=== PATIENT | male | born 2000 | race Two or more races ===

== ENCOUNTER 2022-10-18 10:42 | Inpatient (IN) | payer OTHER ==
[~2022-10-18] VITALS: Ht 182.9 cm; Wt 77.2 kg
[2022-10-18] VITALS (9 sets, daily range): BP systolic 111–128; BP diastolic 55–73
[2022-10-18 11:08] LABS: BASO # 0.1 10^3/uL (0.0-0.2); BASO % 0.5 % (0.0-1.0); EOS % 0.2 % (0.0-3.0); HEMATOCRIT 43.8 % (42.0-52.0); HEMOGLOBIN 15.1 g/dl (13.5-17.5); LYMPH # 1.7 10^3/uL (1.5-5.0); LYMPH % 17.5 % (24.0-44.0); MEAN CORPUSCULAR HEMOGLOBIN 29.2 pg (27.0-33.0); MEAN CORPUSCULAR HGB CONC 34.5 g/dl (32.0-36.5); MEAN CORPUSCULAR VOLUME 84.6 fl (80.0-96.0); MONO # 0.8 10^3/uL (0.0-0.8); MONO % 8.3 % (2.0-8.0); NEUTROPHILS # 7.1 10^3/uL (1.5-8.5); NEUTROPHILS % 73.2 % (36.0-66.0); PLATELET COUNT, AUTOMATED 249 10^3/uL (150-450); RED BLOOD COUNT 5.18 10^6/uL (4.30-6.10); WHITE BLOOD COUNT 9.8 10^3/uL (4.0-10.0)
[2022-10-18] MEDS ORDERED: NS 1,000 ML IV SCH (11:15)
[2022-10-18 11:16] LABS: ABG BASE EXCESS -0.1 (-2.0-2.0); ABG HCO3 21.6 MEQ/L (22.0-26.0); ABG O2 SATURATION 98.3 % (95.0-99.0); ABG PARTIAL PRESSURE CO2 28.3 mmHg (35.0-45.0); ABG PARTIAL PRESSURE O2 110.8 mmHg (75.0-100.0); ABG STANDARD HCO3 24.5 MEQ/L (22.0-26.0); ABG TOTAL CO2 22.5 MEQ/L (22.0-29.0); ABG pH (ARTERIAL) 7.501 UNITS (7.350-7.450)
[2022-10-18 11:50] LABS: VENOUS BASE EXCESS -2.2 (-2.0-2.0); VENOUS HCO3 19.5 MEQ/L (23.0-27.0); VENOUS O2 SATURATION 99.1 % (60.0-80.0); VENOUS PARTIAL PRESSURE CO2 26.8 mmHg (38.0-50.0); VENOUS PARTIAL PRESSURE O2 170.1 mmHg (30.0-50.0); VENOUS PH 7.479 UNITS (7.330-7.430); VENOUS STANDARD HCO3 22.7 MEQ/L; VENOUS TOTAL CO2 20.3 MEQ/L (24.0-28.0)
[2022-10-18 11:54] LABS: AMPHETAMINES LEVEL URINE NEGATIVE (NEGATIVE)
[2022-10-18 11:55] LABS: ETHYL ALCOHOL (ETHANOL) 0.003 % (0.000-0.010)
[2022-10-18 11:55] LABS: BARBITURATES URINE NEGATIVE (NEGATIVE); BENZODIAZEPINES URINE NEGATIVE (NEGATIVE); COCAINE METABOLITE URINE NEGATIVE (NEGATIVE); METHADONE URINE NEGATIVE (NEGATIVE); OPIATES URINE NEGATIVE (NEGATIVE); PHENCYCLIDINE URINE NEGATIVE (NEGATIVE)
[2022-10-18] MEDS ORDERED: SODIUM BICARBONATE 150 MEQ in D5W 1,000 ML IV SCH ×2 (11:55→15:00)
[2022-10-18 11:57] LABS: ACETAMINOPHEN LEVEL < 2.0 UG/ML (10.0-20.0); ALBUMIN 4.1 G/DL (3.2-5.2); ALKALINE PHOSPHATASE 60 U/L (46-116); ALT/SGPT 14 U/L (7.0-40); AST/SGOT 14 U/L (<34); BILIRUBIN,DIRECT 0.1 MG/DL (<0.4); BILIRUBIN,TOTAL 0.3 MG/DL (0.3-1.2); BLOOD UREA NITROGEN 15 MG/DL (9-23); CALCIUM LEVEL 8.5 MG/DL (8.5-10.1); CARBON DIOXIDE LEVEL 22 MMOL/L (20-31); CHLORIDE LEVEL 110 MMOL/L (98-107); CREATININE FOR GFR 1.15 MG/DL (0.70-1.30); GLOMERULAR FILTRATION RATE > 60.0 (>60); GLUCOSE, FASTING 87 MG/DL (60-100); POTASSIUM SERUM 4.2 MMOL/L (3.5-5.1); SALICYLATE LEVEL 61.4 MG/DL (<30); SODIUM LEVEL 142 MMOL/L (136-145); TOTAL PROTEIN 7.3 G/DL (5.7-8.2)
[2022-10-18 12:01] LABS: CANNABINOIDS URINE POSITIVE (NEGATIVE)
[2022-10-18 12:06] LABS: APPEARANCE, URINE MANUAL CLEAR (CLEAR); COLOR, URINE MANUAL LT YELLOW (YELLOW)
[2022-10-18 12:08] LABS: BILIRUBIN, URINE MANUAL NEGATIVE (NEGATIVE); BLOOD URINE MANUAL NEGATIVE (NEGATIVE); GLUCOSE, URINE (UA) MANUAL NEGATIVE (NEGATIVE); KETONE, URINE MANUAL 1+ mg/dL (NEGATIVE); LEUKOCYTE ESTERASE, URINE MAN NEGATIVE (NEGATIVE); NITRITE, URINE MANUAL NEGATIVE (NEGATIVE); PROTEIN, URINE MANUAL NEGATIVE (NEGATIVE); SPECIFIC GRAVITY,URINE MANUAL 1.005 (1.002-1.035); UROBILINOGEN, URINE MANUAL NORMAL (NORMAL)
[2022-10-18] MEDS ORDERED: DEXTROSE 50% 50ML SYRINGE IV STA (12:16)
[2022-10-18] MEDS ORDERED: SODIUM BICARBONATE 8.4% INJ 50ML SYRINGE IV STA (12:16)
[2022-10-18 12:28] LABS: BLOOD UREA NITROGEN 14 MG/DL (9-23); CALCIUM LEVEL 8.9 MG/DL (8.5-10.1); CARBON DIOXIDE LEVEL 20 MMOL/L (20-31); CHLORIDE LEVEL 111 MMOL/L (98-107); CREATININE FOR GFR 1.13 MG/DL (0.70-1.30); GLOMERULAR FILTRATION RATE > 60.0 (>60); GLUCOSE, FASTING 90 MG/DL (60-100); POTASSIUM SERUM 4.1 MMOL/L (3.5-5.1); SODIUM LEVEL 142 MMOL/L (136-145)
[2022-10-18 12:33] LABS: THYROID STIMULATING HORMONE 1.151 uIU/ML (0.55-4.78)
[2022-10-18] MEDS ORDERED: PANTOPRAZOLE 40MG VIAL IV ONE (12:35)
[2022-10-18] MEDS ORDERED: ONDANSETRON 4MG 2ML VIAL IV ONE (12:35)
[2022-10-18 12:42] LABS: CPK CREATINE PHOSPHOKINASE 171 U/L (46-171)
[2022-10-18 12:53] LABS: OSMOLALITY SERUM 291 MOSM/KG (275-295)
[2022-10-18 12:58] LABS: OSMOLALITY SERUM 294 MOSM/KG (275-295)
[2022-10-18] MEDS ORDERED: ONDANSETRON 4MG 2ML VIAL IV PRN (13:00)
[2022-10-18] MEDS ORDERED: GI COCKTAIL 50ML BTL(HYOSCYAMINE/MAALOX/LIDOCAINE VISCOUS)(1:3:1) PO ONE (13:45)
[2022-10-18] MEDS ORDERED: ANAC400T PO (13:57)
[2022-10-18] MEDS ORDERED: ACET-897 PO (13:57)
[2022-10-18] MEDS ORDERED: HOME MED LIST COMPLETE! XX SCH (14:00)
[2022-10-18] MEDS: SUCRALFATE SUSP 1GM/10ML UD PO SCH ×2 (14:06→20:23)
[2022-10-18 15:14] LABS: ABG BASE EXCESS 1.4 (-2.0-2.0); ABG HCO3 22.8 MEQ/L (22.0-26.0); ABG O2 SATURATION 98.6 % (95.0-99.0); ABG PARTIAL PRESSURE CO2 28.4 mmHg (35.0-45.0); ABG PARTIAL PRESSURE O2 113.8 mmHg (75.0-100.0); ABG STANDARD HCO3 25.7 MEQ/L (22.0-26.0); ABG TOTAL CO2 23.7 MEQ/L (22.0-29.0); ABG pH (ARTERIAL) 7.523 UNITS (7.350-7.450)
[2022-10-18 15:24] LABS: ALBUMIN 4.5 G/DL (3.2-5.2); ALKALINE PHOSPHATASE 67 U/L (46-116); ALT/SGPT 15 U/L (7.0-40); AST/SGOT 9 U/L (<34); BILIRUBIN,TOTAL 0.5 MG/DL (0.3-1.2); BLOOD UREA NITROGEN 14 MG/DL (9-23); CALCIUM LEVEL 9.2 MG/DL (8.5-10.1); CARBON DIOXIDE LEVEL 21 MMOL/L (20-31); CHLORIDE LEVEL 111 MMOL/L (98-107); CREATININE FOR GFR 1.24 MG/DL (0.70-1.30); GLOMERULAR FILTRATION RATE > 60.0 (>60); GLUCOSE, FASTING 103 MG/DL (60-100); POTASSIUM SERUM 4.1 MMOL/L (3.5-5.1); SODIUM LEVEL 144 MMOL/L (136-145); TOTAL PROTEIN 7.9 G/DL (5.7-8.2)
[2022-10-18] MEDS ORDERED: LR 1,000 ML IV ONE ×2 (17:10→19:00)
[2022-10-18] MEDS: ENOXAPARIN 40MG/0.4ML SYRINGE (J1650 PER 10MG) SC SCH (17:28)
[2022-10-18 17:33] LABS: ABG HCO3 22.7 MEQ/L (22.0-26.0); ABG O2 SATURATION 98.3 % (95.0-99.0); ABG STANDARD HCO3 26.3 MEQ/L (22.0-26.0); ABG TOTAL CO2 23.5 MEQ/L (22.0-29.0); ABG pH (ARTERIAL) 7.559 UNITS (7.350-7.450)
[2022-10-18 17:51] LABS: SALICYLATE LEVEL 63.3 MG/DL (<30)
[2022-10-18 17:52] LABS: BLOOD UREA NITROGEN 13 MG/DL (9-23); CALCIUM LEVEL 8.3 MG/DL (8.5-10.1); CARBON DIOXIDE LEVEL 23 MMOL/L (20-31); CHLORIDE LEVEL 109 MMOL/L (98-107); CREATININE FOR GFR 1.24 MG/DL (0.70-1.30); GLOMERULAR FILTRATION RATE > 60.0 (>60); GLUCOSE, FASTING 121 MG/DL (60-100); POTASSIUM SERUM 3.7 MMOL/L (3.5-5.1); SODIUM LEVEL 143 MMOL/L (136-145)
[2022-10-18] MEDS: SODIUM BICARBONATE 150 MEQ, POTASSIUM CHLORIDE INJ 40 MEQ in D5W 1,000 ML IV SCH ×2 (18:08→23:17)
[2022-10-18 18:26] LABS: APPEARANCE, URINE MANUAL CLEAR (CLEAR); COLOR, URINE MANUAL YELLOW (YELLOW); PH,URINE MAN 8.5 UNITS (5.0 - 7.0)
[2022-10-18 18:27] LABS: BILIRUBIN, URINE MANUAL NEGATIVE (NEGATIVE); BLOOD URINE MANUAL POSITIVE (NEGATIVE); GLUCOSE, URINE (UA) MANUAL NEGATIVE (NEGATIVE); KETONE, URINE MANUAL 2+ mg/dL (NEGATIVE); NITRITE, URINE MANUAL NEGATIVE (NEGATIVE); PROTEIN, URINE MANUAL NEGATIVE (NEGATIVE); SPECIFIC GRAVITY,URINE MANUAL 1.028 (1.002-1.035); UROBILINOGEN, URINE MANUAL NORMAL (NORMAL)
[2022-10-18 18:37] LABS: LEUKOCYTE ESTERASE, URINE MAN NEGATIVE (NEGATIVE)
[2022-10-18 18:40] LABS: RBC, URINE 30-40 /hpf (0-3); SQUAMOUS EPITHELIAL CELL URINE SMALL AMOUNT /hpf (SMALL AMT); TRANSITIONAL EPI CELLS, URINE SMALL AMOUNT /hpf
[2022-10-18 18:43] LABS: AMORPHOUS SEDIMENT, URINE SMALL AMOUNT (NEGATIVE); BACTERIA, URINE NONE SEEN; HYALINE CAST, URINE NONE SEEN /lpf (0-1); MUCUS, URINE MOD AMOUNT (NEGATIVE)
[2022-10-18 19:22] LABS: ABG BASE EXCESS 4.6 (-2.0-2.0); ABG HCO3 25.7 MEQ/L (22.0-26.0); ABG O2 SATURATION 98.7 % (95.0-99.0); ABG PARTIAL PRESSURE CO2 28.6 mmHg (35.0-45.0); ABG PARTIAL PRESSURE O2 111.3 mmHg (75.0-100.0); ABG STANDARD HCO3 28.6 MEQ/L (22.0-26.0); ABG TOTAL CO2 26.6 MEQ/L (22.0-29.0); ABG pH (ARTERIAL) 7.571 UNITS (7.350-7.450)
[2022-10-18 19:51] LABS: BLOOD UREA NITROGEN 13 MG/DL (9-23); CALCIUM LEVEL 8.6 MG/DL (8.5-10.1); CARBON DIOXIDE LEVEL 27 MMOL/L (20-31); CHLORIDE LEVEL 108 MMOL/L (98-107); CREATININE FOR GFR 1.25 MG/DL (0.70-1.30); GLOMERULAR FILTRATION RATE > 60.0 (>60); GLUCOSE, FASTING 114 MG/DL (60-100); POTASSIUM SERUM 3.8 MMOL/L (3.5-5.1); SALICYLATE LEVEL 52.9 MG/DL (<30); SODIUM LEVEL 143 MMOL/L (136-145)
[2022-10-18 23:41] LABS: BLOOD UREA NITROGEN 12 MG/DL (9-23); CALCIUM LEVEL 7.8 MG/DL (8.5-10.1); CARBON DIOXIDE LEVEL 29 MMOL/L (20-31); CHLORIDE LEVEL 107 MMOL/L (98-107); CREATININE FOR GFR 1.29 MG/DL (0.70-1.30); GLOMERULAR FILTRATION RATE > 60.0 (>60); GLUCOSE, FASTING 106 MG/DL (60-100); POTASSIUM SERUM 3.3 MMOL/L (3.5-5.1); SALICYLATE LEVEL 40.4 MG/DL (<30); SODIUM LEVEL 142 MMOL/L (136-145)
[2022-10-18] MEDS ORDERED: POTASSIUM CHLORIDE 10MEQ SR TABLET PO ONE (23:50)
[2022-10-19] VITALS (16 sets, daily range): BP systolic 107–127; BP diastolic 52–76
[2022-10-19 03:36] LABS: BLOOD UREA NITROGEN 11 MG/DL (9-23); CALCIUM LEVEL 7.6 MG/DL (8.5-10.1); CARBON DIOXIDE LEVEL 31 MMOL/L (20-31); CHLORIDE LEVEL 105 MMOL/L (98-107); CREATININE FOR GFR 1.36 MG/DL (0.70-1.30); GLOMERULAR FILTRATION RATE > 60.0 (>60); GLUCOSE, FASTING 107 MG/DL (60-100); POTASSIUM SERUM 3.4 MMOL/L (3.5-5.1); SALICYLATE LEVEL 31.6 MG/DL (<30); SODIUM LEVEL 141 MMOL/L (136-145)
[2022-10-19 03:41] LABS: ABG BASE EXCESS 6.7 (-2.0-2.0); ABG HCO3 26.7 MEQ/L (22.0-26.0); ABG O2 SATURATION 98.9 % (95.0-99.0); ABG PARTIAL PRESSURE CO2 25.4 mmHg (35.0-45.0); ABG PARTIAL PRESSURE O2 151.9 mmHg (75.0-100.0); ABG STANDARD HCO3 30.6 MEQ/L (22.0-26.0); ABG TOTAL CO2 27.4 MEQ/L (22.0-29.0)
[2022-10-19 03:47] LABS: ABG pH (ARTERIAL) 7.639 UNITS (7.350-7.450)
[2022-10-19] MEDS ORDERED: NS 1,000 ML IV SCH (04:20)
[2022-10-19 06:33] LABS: APPEARANCE, URINE MANUAL CLEAR (CLEAR); COLOR, URINE MANUAL YELLOW (YELLOW)
[2022-10-19 06:34] LABS: BILIRUBIN, URINE MANUAL NEGATIVE (NEGATIVE); BLOOD URINE MANUAL TRACE (NEGATIVE); GLUCOSE, URINE (UA) MANUAL NEGATIVE (NEGATIVE); KETONE, URINE MANUAL 1+ mg/dL (NEGATIVE); LEUKOCYTE ESTERASE, URINE MAN NEGATIVE (NEGATIVE); NITRITE, URINE MANUAL NEGATIVE (NEGATIVE); PH,URINE MAN 8.5 UNITS (5.0 - 7.0); PROTEIN, URINE MANUAL TRACE mg/dL (NEGATIVE); UROBILINOGEN, URINE MANUAL NORMAL (NORMAL)
[2022-10-19 06:37] LABS: VENOUS BASE EXCESS 3.9 (-2.0-2.0); VENOUS HCO3 27.3 MEQ/L (23.0-27.0); VENOUS O2 SATURATION 94.1 % (60.0-80.0); VENOUS PARTIAL PRESSURE CO2 37.3 mmHg (38.0-50.0); VENOUS PARTIAL PRESSURE O2 68.9 mmHg (30.0-50.0); VENOUS PH 7.483 UNITS (7.330-7.430); VENOUS STANDARD HCO3 27.9 MEQ/L; VENOUS TOTAL CO2 28.5 MEQ/L (24.0-28.0)
[2022-10-19 06:43] LABS: AMORPHOUS SEDIMENT, URINE SMALL AMOUNT (NEGATIVE); BACTERIA, URINE SMALL AMOUNT; HYALINE CAST, URINE NONE SEEN /lpf (0-1); SQUAMOUS EPITHELIAL CELL URINE NONE SEEN /hpf (SMALL AMT)
[2022-10-19 07:18] LABS: BLOOD UREA NITROGEN 11 MG/DL (9-23); CALCIUM LEVEL 7.7 MG/DL (8.5-10.1); CARBON DIOXIDE LEVEL 29 MMOL/L (20-31); CHLORIDE LEVEL 107 MMOL/L (98-107); CREATININE FOR GFR 1.36 MG/DL (0.70-1.30); GLOMERULAR FILTRATION RATE > 60.0 (>60); GLUCOSE, FASTING 101 MG/DL (60-100); POTASSIUM SERUM 3.5 MMOL/L (3.5-5.1); SALICYLATE LEVEL 24.6 MG/DL (<30); SODIUM LEVEL 144 MMOL/L (136-145)
[2022-10-19] MEDS ORDERED: POTASSIUM CHLORIDE 10MEQ SR TABLET PO ONE (08:00)
[2022-10-19] MEDS: LR 1,000 ML IV SCH ×2 (08:28→15:55)
[2022-10-19] MEDS: SUCRALFATE SUSP 1GM/10ML UD PO SCH ×2 (08:29→20:24)
[2022-10-19] MEDS: ENOXAPARIN 40MG/0.4ML SYRINGE (J1650 PER 10MG) SC SCH (08:29)
[2022-10-19] MEDS ORDERED: PANTOPRAZOLE 40MG VIAL IV SCH (09:00)
[2022-10-19 11:01] LABS: ABG BASE EXCESS 4.2 (-2.0-2.0); ABG HCO3 27.4 MEQ/L (22.0-26.0); ABG PARTIAL PRESSURE CO2 36.3 mmHg (35.0-45.0); ABG PARTIAL PRESSURE O2 171.4 mmHg (75.0-100.0); ABG STANDARD HCO3 28.3 MEQ/L (22.0-26.0); ABG TOTAL CO2 28.5 MEQ/L (22.0-29.0); ABG pH (ARTERIAL) 7.496 UNITS (7.350-7.450)
[2022-10-19 11:22] LABS: SALICYLATE LEVEL 16.2 MG/DL (<30)
[2022-10-19 11:25] LABS: ALBUMIN 3.3 G/DL (3.2-5.2); ALKALINE PHOSPHATASE 47 U/L (46-116); ALT/SGPT < 9 U/L (7.0-40); AST/SGOT 11 U/L (<34); BILIRUBIN,TOTAL 0.5 MG/DL (0.3-1.2); BLOOD UREA NITROGEN 10 MG/DL (9-23); CALCIUM LEVEL 8.5 MG/DL (8.5-10.1); CARBON DIOXIDE LEVEL 28 MMOL/L (20-31); CHLORIDE LEVEL 108 MMOL/L (98-107); CREATININE FOR GFR 1.22 MG/DL (0.70-1.30); GLOMERULAR FILTRATION RATE > 60.0 (>60); GLUCOSE, FASTING 93 MG/DL (60-100); SODIUM LEVEL 144 MMOL/L (136-145); TOTAL PROTEIN 5.4 G/DL (5.7-8.2)
[2022-10-19] MEDS: THIAMINE 100 MG TAB PO SCH (13:04)
[2022-10-19] MEDS: MULTIVITAMINS/MINERALS THERAP 1 TAB PO SCH (13:04)
[2022-10-19] MEDS: FOLIC ACID 1MG TAB PO SCH (13:05)
[2022-10-19] MEDS: RAMELTEON 8 MG TAB (ROZEREM) PO PRN (21:48)
[2022-10-20] MEDS: LR 1,000 ML IV SCH ×2 (00:21→08:10)
[2022-10-20 06:00] VITALS: BP 104/51
[2022-10-20 06:08] LABS: BASO # 0.1 10^3/uL (0.0-0.2); BASO % 0.7 % (0.0-1.0); EOS # 0.1 10^3/uL (0.0-0.5); EOS % 1.5 % (0.0-3.0); HEMATOCRIT 40.3 % (42.0-52.0); HEMOGLOBIN 13.2 g/dl (13.5-17.5); MEAN CORPUSCULAR HEMOGLOBIN 28.8 pg (27.0-33.0); MEAN CORPUSCULAR HGB CONC 32.8 g/dl (32.0-36.5); MONO # 0.6 10^3/uL (0.0-0.8); MONO % 8.4 % (2.0-8.0); NEUTROPHILS # 4.6 10^3/uL (1.5-8.5); NEUTROPHILS % 62.3 % (36.0-66.0); PLATELET COUNT, AUTOMATED 200 10^3/uL (150-450); RED BLOOD COUNT 4.58 10^6/uL (4.30-6.10); WHITE BLOOD COUNT 7.4 10^3/uL (4.0-10.0)
[2022-10-20 06:35] LABS: BLOOD UREA NITROGEN 10 MG/DL (9-23); CARBON DIOXIDE LEVEL 27 MMOL/L (20-31); CHLORIDE LEVEL 106 MMOL/L (98-107); GLOMERULAR FILTRATION RATE > 60.0 (>60); GLUCOSE, FASTING 85 MG/DL (60-100); POTASSIUM SERUM 4.2 MMOL/L (3.5-5.1); SODIUM LEVEL 141 MMOL/L (136-145)
[2022-10-20] MEDS: PANTOPRAZOLE 40MG TAB (PROTONIX) PO SCH (08:12)
[2022-10-20] MEDS: SUCRALFATE SUSP 1GM/10ML UD PO SCH ×2 (08:12→20:02)
[2022-10-20] MEDS: THIAMINE 100 MG TAB PO SCH (08:12)
[2022-10-20] MEDS: FOLIC ACID 1MG TAB PO SCH (08:12)
[2022-10-20] MEDS: SERTRALINE HCL 25 MG TABLET PO SCH (08:12)
[2022-10-20] MEDS: MULTIVITAMINS/MINERALS THERAP 1 TAB PO SCH (08:12)
[2022-10-20] MEDS: ENOXAPARIN 40MG/0.4ML SYRINGE (J1650 PER 10MG) SC SCH (08:13)
[2022-10-20] MEDS: ACETAMINOPHEN TAB 650MG DOSE (2X325MG) PO PRN ×2 (09:25→20:11)
[2022-10-20] MEDS: NICOTINE 14 MG/24 HR TRANSDERMAL TD SCH (09:25)
[2022-10-20 14:00] VITALS: BP 141/77
[2022-10-20 18:45] LABS: BASO # 0.1 10^3/uL (0.0-0.2); BASO % 0.7 % (0.0-1.0); EOS # 0.2 10^3/uL (0.0-0.5); EOS % 2.5 % (0.0-3.0); HEMATOCRIT 42.4 % (42.0-52.0); HEMOGLOBIN 14.1 g/dl (13.5-17.5); LYMPH # 2.4 10^3/uL (1.5-5.0); LYMPH % 33.7 % (24.0-44.0); MEAN CORPUSCULAR HEMOGLOBIN 29.1 pg (27.0-33.0); MEAN CORPUSCULAR HGB CONC 33.3 g/dl (32.0-36.5); MEAN CORPUSCULAR VOLUME 87.4 fl (80.0-96.0); MONO # 0.7 10^3/uL (0.0-0.8); MONO % 9.3 % (2.0-8.0); NEUTROPHILS # 3.8 10^3/uL (1.5-8.5); NEUTROPHILS % 53.5 % (36.0-66.0); PLATELET COUNT, AUTOMATED 219 10^3/uL (150-450); RED BLOOD COUNT 4.85 10^6/uL (4.30-6.10); WHITE BLOOD COUNT 7.1 10^3/uL (4.0-10.0)
[2022-10-20] MEDS: NICOTINE POLACRILEX 2 MG GUM PO PRN (19:18)
[2022-10-20 20:32] VITALS: BP 128/77
[2022-10-20 23:06] VITALS: BP 128/75
[2022-10-20] MEDS ORDERED: IBUPROFEN 400MG TAB PO ONE (23:25)
[2022-10-21 06:00] VITALS: BP 124/74
[2022-10-21] MEDS: SUCRALFATE SUSP 1GM/10ML UD PO SCH ×2 (09:44→20:00)
[2022-10-21] MEDS: THIAMINE 100 MG TAB PO SCH (09:44)
[2022-10-21] MEDS: FOLIC ACID 1MG TAB PO SCH (09:45)
[2022-10-21] MEDS: NICOTINE 14 MG/24 HR TRANSDERMAL TD SCH (09:45)
[2022-10-21] MEDS: MULTIVITAMINS/MINERALS THERAP 1 TAB PO SCH (09:45)
[2022-10-21] MEDS: ENOXAPARIN 40MG/0.4ML SYRINGE (J1650 PER 10MG) SC SCH (09:45)
[2022-10-21] MEDS: SERTRALINE HCL 25 MG TABLET PO SCH (09:45)
[2022-10-21] MEDS: PANTOPRAZOLE 40MG TAB (PROTONIX) PO SCH (09:45)
[2022-10-21] MEDS: NICOTINE POLACRILEX 2 MG GUM PO PRN ×4 (09:52→20:01)
[2022-10-21 14:00] VITALS: BP 158/80
[2022-10-21 15:55] VITALS: BP 138/74
[2022-10-21] MEDS: RAMELTEON 8 MG TAB (ROZEREM) PO PRN (20:00)
[2022-10-21] MEDS: ACETAMINOPHEN TAB 650MG DOSE (2X325MG) PO PRN (20:01)
[2022-10-21 22:00] VITALS: BP 136/88
[2022-10-22 06:00] VITALS: BP 116/71
[2022-10-22] MEDS: ENOXAPARIN 40MG/0.4ML SYRINGE (J1650 PER 10MG) SC SCH (09:00)
[2022-10-22] MEDS: SUCRALFATE SUSP 1GM/10ML UD PO SCH ×2 (09:38→19:47)
[2022-10-22] MEDS: NICOTINE 14 MG/24 HR TRANSDERMAL TD SCH (09:39)
[2022-10-22] MEDS: PANTOPRAZOLE 40MG TAB (PROTONIX) PO SCH (09:40)
[2022-10-22] MEDS: MULTIVITAMINS/MINERALS THERAP 1 TAB PO SCH (09:40)
[2022-10-22] MEDS: SERTRALINE HCL 25 MG TABLET PO SCH (09:40)
[2022-10-22] MEDS: THIAMINE 100 MG TAB PO SCH (09:40)
[2022-10-22] MEDS: FOLIC ACID 1MG TAB PO SCH (09:40)
[2022-10-22] MEDS: NICOTINE POLACRILEX 2 MG GUM PO PRN ×4 (12:30→22:13)
[2022-10-22 14:00] VITALS: BP 134/79
[2022-10-22 20:30] VITALS: BP 135/78
[2022-10-22] MEDS: RAMELTEON 8 MG TAB (ROZEREM) PO PRN (22:13)
[2022-10-23 04:50] VITALS: BP 117/73
[2022-10-23] MEDS: ENOXAPARIN 40MG/0.4ML SYRINGE (J1650 PER 10MG) SC SCH (09:00)
[2022-10-23] MEDS: SUCRALFATE SUSP 1GM/10ML UD PO SCH (09:35)
[2022-10-23] MEDS: NICOTINE 14 MG/24 HR TRANSDERMAL TD SCH (09:36)
[2022-10-23] MEDS: FOLIC ACID 1MG TAB PO SCH (09:37)
[2022-10-23] MEDS: SERTRALINE HCL 25 MG TABLET PO SCH (09:37)
[2022-10-23] MEDS: THIAMINE 100 MG TAB PO SCH (09:37)
[2022-10-23] MEDS: PANTOPRAZOLE 40MG TAB (PROTONIX) PO SCH (09:37)
[2022-10-23] MEDS: MULTIVITAMINS/MINERALS THERAP 1 TAB PO SCH (09:37)
[2022-10-23] MEDS: NICOTINE POLACRILEX 2 MG GUM PO PRN (09:43)
[2022-10-23] MEDS ORDERED: THIA100TA PO (13:39)
[2022-10-23] MEDS ORDERED: VITMTA PO (13:39)
[2022-10-23] MEDS ORDERED: SERT25TA21 PO (13:39)
[2022-10-23] MEDS ORDERED: NICO2GUM PO (13:39)
[2022-10-23] MEDS ORDERED: NICO14PA TD (13:39)
[2022-10-23] MEDS ORDERED: FOLI1TAB11 PO (13:39)
== END 2022-10-23 14:30 | DRG 918 ==
LOC: M ED 10:42 → M ED INP 12:58 → ENRESERV 13:33 → M ICU 14:28 → M MSPAV 10-19 21:39
PROVIDERS: ADMIT Internal Medicine Critical Care Medicine; ATTEND Internal Medicine
DX: T39.012A Poisoning by aspirin, intentional self-harm, initial encounter (principal); E87.4 Mixed disorder of acid-base balance; N17.9 Acute kidney failure, unspecified; F17.290 Nicotine dependence, other tobacco product, uncomplicated; F41.9 Anxiety disorder, unspecified; F32.A Depression, unspecified; E87.6 Hypokalemia; F10.10 Alcohol abuse, uncomplicated; H93.19 Tinnitus, unspecified ear; Z91.82 Personal history of military deployment; F43.20 Adjustment disorder, unspecified

== ENCOUNTER 2022-10-23 11:32 | Inpatient (IN) | payer OTHER ==
[~2022-10-23 11:32] MED LIST: ACET-897 PO; ANAC400T PO; NICOTINE 21MG/24HR 1 EA TRANSDERMAL TD SCH
[2022-10-23] MEDS ORDERED: MAALOX 30 ML SUSP *UDC PO PRN (11:55)
[2022-10-23] MEDS ORDERED: MOM 30ML SUSPENSION UDC PO PRN (11:55)
[2022-10-23] MEDS ORDERED: traZODone 50 MG TAB PO PRN (11:55)
[2022-10-23] MEDS ORDERED: FOLI1TAB11 PO (13:39)
[2022-10-23] MEDS ORDERED: VITMTA PO (13:39)
[2022-10-23] MEDS ORDERED: NICO2GUM PO (13:39)
[2022-10-23] MEDS ORDERED: SERT25TA21 PO (13:39)
[2022-10-23] MEDS ORDERED: THIA100TA PO (13:39)
[2022-10-23] MEDS ORDERED: NICO14PA TD (13:39)
[2022-10-23 14:36] VITALS: BP 140/72
[2022-10-23] MEDS ORDERED: HOME MED LIST COMPLETE! XX SCH (14:55)
[2022-10-23] MEDS: NICOTINE 21MG/24HR 1 EA TRANSDERMAL TD PRN (17:24)
[2022-10-23] MEDS: RAMELTEON 8 MG TAB (ROZEREM) PO SCH (21:42)
[2022-10-24 06:21] VITALS: BP 107/65
[2022-10-24] MEDS: SERTRALINE HCL 50 MG TAB PO SCH (08:26)
[2022-10-24] MEDS: NICOTINE 21MG/24HR 1 EA TRANSDERMAL TD PRN (08:26)
[2022-10-24] MEDS: FOLIC ACID 1MG TAB PO SCH (11:59)
[2022-10-24] MEDS: MULTIVITAMINS/MINERALS THERAP 1 TAB PO SCH (11:59)
[2022-10-24] MEDS: THIAMINE 100 MG TAB PO SCH ×2 (11:59→20:09)
[2022-10-24 19:17] VITALS: BP 140/84
[2022-10-24] MEDS: RAMELTEON 8 MG TAB (ROZEREM) PO SCH (20:09)
[2022-10-25 06:49] VITALS: BP 134/78
[2022-10-25] MEDS: FOLIC ACID 1MG TAB PO SCH (08:30)
[2022-10-25] MEDS: SERTRALINE HCL 50 MG TAB PO SCH (08:30)
[2022-10-25] MEDS: THIAMINE 100 MG TAB PO SCH ×2 (08:30→20:08)
[2022-10-25] MEDS: MULTIVITAMINS/MINERALS THERAP 1 TAB PO SCH (08:30)
[2022-10-25] MEDS: NICOTINE 21MG/24HR 1 EA TRANSDERMAL TD PRN (08:31)
[2022-10-25] MEDS: busPIRone 10 MG TAB PO SCH ×2 (09:51→20:08)
[2022-10-25] MEDS: NICOTINE POLACRILEX 2 MG GUM PO PRN ×2 (09:51→18:18)
[2022-10-25 18:06] VITALS: BP 165/79
[2022-10-25] MEDS: RAMELTEON 8 MG TAB (ROZEREM) PO SCH (20:08)
[2022-10-26 06:22] VITALS: BP 134/83
[2022-10-26] MEDS: SERTRALINE HCL 50 MG TAB PO SCH (08:22)
[2022-10-26] MEDS: THIAMINE 100 MG TAB PO SCH (08:22)
[2022-10-26] MEDS: FOLIC ACID 1MG TAB PO SCH (08:22)
[2022-10-26] MEDS: busPIRone 10 MG TAB PO SCH (08:22)
[2022-10-26] MEDS: MULTIVITAMINS/MINERALS THERAP 1 TAB PO SCH (08:22)
[2022-10-26] MEDS: NICOTINE POLACRILEX 2 MG GUM PO PRN (08:23)
[2022-10-26] MEDS ORDERED: SERT50TA29 PO (08:38)
[2022-10-26] MEDS ORDERED: RAME8TAB2 PO (08:38)
[2022-10-26] MEDS ORDERED: BUSP10TA PO (08:38)
[2022-10-26] MEDS ORDERED: chlorproMAZINE INJ 50MG/2ML AMP IM STA (08:40)
== END 2022-10-26 12:01 | disposition home or self-care (01) | DRG 881 ==
LOC: OBSVTOIN 14:46 → M PSY 14:46
PROVIDERS: ADMIT Student in an Organized Health Care Education/Training Program; ATTEND Student in an Organized Health Care Education/Training Program
DX: F43.21 Adjustment disorder with depressed mood (principal); F12.10 Cannabis abuse, uncomplicated; Z56.2 Threat of job loss; Z91.51 Personal history of suicidal behavior; F41.9 Anxiety disorder, unspecified; F17.200 Nicotine dependence, unspecified, uncomplicated; Z79.899 Other long term (current) drug therapy